=== PATIENT | female | born 1950 | race Caucasian/White ===

== ENCOUNTER → 2016-05-23 | Outpatient (CLI) | payer MEDICARE, OTHER ==
--- NOTE | 2016-05-23 15:28 | KCIC ---
PROCEDURE Bone mineral density exam. HISTORY Ovarian failure, takes calcium supplement, family history of osteoporosis COMPARISON 12/06/2012 FINDINGS Bone mineral density exam utilizing DEXA was performed. Lumbar spine bone mineral density 1.011 grams/centimeter square corresponds with T-score-0.3 and a Z-score of 1.5. Left hip bone mineral density of 0.824 grams/centimeter square corresponds with T-score-1.0 and a Z-score of 0.3. Comparing the left hip with the previous exam, there has been-1 percent decrease. Comparing the lumbar spine, there has been 6.4 percent increase. World Health Organization criteria for bone mineral density interpretation: Normal T-score greater than or equal to-1.0, Osteopenia T score between-1.0 and-2.5, Osteoporosis T-score less than or equal to-2.5. IMPRESSION 1. There is normal bone density of the lumbar spine. Bone mineral density of the left hip is also considered within normal limits, borderline osteopenia. Electronically signed by: Dread Lara MD (May 23, 2016 15:26:55)
== END | disposition home or self-care (01) ==
LOC: KCIC DEXA 14:31
PROVIDERS: ATTEND Physician Assistant
DX: Z13.820 Encounter for screening for osteoporosis (principal); E28.39 Other primary ovarian failure; M85.88 Other specified disorders of bone density and structure, other site; Z82.62 Family history of osteoporosis
CPT/HCPCS: 77080

== ENCOUNTER → 2016-08-28 | Outpatient (CLI) | payer MEDICARE, OTHER ==
--- NOTE | 2016-08-28 13:12 | KCIC ---
Three-view right ankle and three-view right foot HISTORY: Twisting injury one week ago. Lateral pain. COMPARISON: None Right ankle Chronic calcification or ossicles are seen below the medial and lateral malleolus.. These could be dystrophic or related to old trauma. No evidence of acute fracture. Ankle mortise appears intact. There is evidence of a small tibiotalar joint effusion. Right foot No acute fracture. No bone destruction. Joint spaces and alignment are intact. No significant soft tissue abnormality. IMPRESSION: 1. No evidence of acute fracture or dislocation. 2. Small tibiotalar joint effusion. Electronically signed by: Maged Preston MD (08/28/2016 1:09 PM)
== END | disposition home or self-care (01) ==
LOC: KCIC 12:14
PROVIDERS: ATTEND Physician Assistant
DX: S99.911A Unspecified injury of right ankle, initial encounter (principal); X58.XXXA Exposure to other specified factors, initial encounter; Y93.89 Activity, other specified; Y92.89 Other specified places as the place of occurrence of the external cause; Y99.8 Other external cause status
CPT/HCPCS: 73610; 73630

== ENCOUNTER → 2016-11-01 | Outpatient (CLI) | payer MEDICARE ==
--- NOTE | 2016-11-01 10:26 | RAD ---
DATE: 11/01/2016 EXAM: MAMMO RADHA SCREENING BILATERAL HISTORY: Routine screening COMPARISON: 10/14/2015 The breast parenchyma shows scattered fibroglandular densities. Breast parenchyma level B. FINDINGS: 2-D and 3-D tomosynthesis imaging was performed in CC and MLO projections. No new or enlarging breast densities are seen. No suspicious microcalcifications are evident. IMPRESSION: Stable mammograms without evidence of malignancy. BI-RADS CATEGORY: 1 NEGATIVE RECOMMENDED FOLLOW-UP: 12M 12 MONTH FOLLOW-UP PQRS compliance statement: Patient information was entered into a reminder system with a target due date for the next mammogram. Mammography is a sensitive method for finding small breast cancers, but it does not detect them all and is not a substitute for careful clinical examination. A negative mammogram does not negate a clinically suspicious finding and should not result in delay in biopsying a clinically suspicious abnormality. "Our facility is accredited by the [employer] Mammography Program."
== END | disposition home or self-care (01) ==
LOC: KCIC MAMMO 08:59
PROVIDERS: ATTEND Family Medicine
DX: Z12.31 Encounter for screening mammogram for malignant neoplasm of breast (principal)
CPT/HCPCS: 77063; G0202; 77067

== ENCOUNTER → 2016-12-05 | Outpatient (CLI) | payer MEDICARE ==
--- NOTE | 2016-12-05 16:36 | KCIC ---
RIGHT SHOULDER , 3 VIEWS Clinical Indication: Acute pain in right shoulder. Comparison: None. Findings: There is no acute fracture or dislocation. The acromioclavicular and glenohumeral joints are intact. Mild AC arthropathy. There are at least 2 calcified granulomas in the right midlung. Mild right basilar discoid atelectasis or scarring. There is no evidence of a displaced rib fracture. There is no soft tissue abnormality. IMPRESSION: No acute fracture or dislocation. Electronically signed by: Giovanny Lucas MD (12/05/2016 4:31 PM) [id number]
== END | disposition home or self-care (01) ==
LOC: KCIC 16:04
PROVIDERS: ATTEND Family Medicine
DX: M25.511 Pain in right shoulder (principal); G89.29 Other chronic pain
CPT/HCPCS: 73030

== ENCOUNTER → 2017-04-26 | Outpatient (CLI) | payer MEDICARE | END | disposition home or self-care (01) | LOC: KCIC 15:45 | DX: M17.12 Unilateral primary osteoarthritis, left knee (principal); M25.462 Effusion, left knee | CPT/HCPCS: 73562 ==